=== PATIENT | female | born 1940 | race African-American/Black ===

== ENCOUNTER 2017-08-01 19:39 | Emergency (ER) | payer OTHER, MEDICAID ==
[~2017-08-01] VITALS: Ht 162.6 cm; Wt 68.0 kg
[2017-08-01 19:40] VITALS: BP 144/80
== END 2017-08-01 20:20 | disposition left against medical advice (07) ==
LOC: ER 19:39
DX: E11.649 Type 2 diabetes mellitus with hypoglycemia without coma (principal); Z53.21 Procedure and treatment not carried out due to patient leaving prior to being seen by health care provider

== ENCOUNTER 2021-02-27 19:55 | Emergency (ER) | payer OTHER, MEDICAID ==
[~2021-02-27] VITALS: Ht 157.5 cm; Wt 54.0 kg
[~2021-02-27 19:55] MED LIST: ATOR10TA69 PO; BROM3DRO; DICL100G31 TP; DIFL5DRO; DIXL5; METO25TA6 PO; MULT-1318 PO
[2021-02-27 23:07] VITALS: BP 131/70
== END 2021-02-27 23:19 ==
LOC: ER 19:55
DX: S00.81XA Abrasion of other part of head, initial encounter (principal); R51.9 Headache, unspecified; W01.0XXA Fall on same level from slipping, tripping and stumbling without subsequent striking against object, initial encounter; Y93.89 Activity, other specified; Y92.89 Other specified places as the place of occurrence of the external cause; Y99.8 Other external cause status
CPT/HCPCS: 99284

== ENCOUNTER 2022-06-14 08:26 | Inpatient (IN) | payer OTHER, MEDICAID ==
[~2022-06-14] VITALS: Ht 157.5 cm; Wt 50.1 kg
[2022-06-14 11:28] LABS: HEMATOCRIT. 37.4 % (36.0-48.0); HEMOGLOBIN. 12.4 g/dL (12.0-16.0); LYMPHOCYTES % 14.9 % (20.0-50.0); MEAN CORPUSCULAR VOLUME 81.4 fL (81.0-99.0); MEAN PLATELET VOLUME 7.2 fl (7.4-10.4); NEUTROPHILS % 76.1 % (40.0-76.0); PLATELET 358 x1000/uL (130-400); RED CELL DISTRIBUTION WIDTH 15.8 % (11.6-14.6)
[2022-06-14 11:36] LABS: CHLORIDE 101 mEq/L (98-107)
[2022-06-14] MEDS ORDERED: ONDANSETRON HCL 4MG/2ML INJ IV PRN (13:45)
[2022-06-14] MEDS ORDERED: DIPHENHYDRAMINE 50MG/ML VIAL IV PRN (13:45)
[2022-06-14] MEDS ORDERED: CLONIDINE 0.1MG TABLET PO PRN (13:45)
[2022-06-14] MEDS ORDERED: ACETAMINOPHEN 325MG TABLET PO PRN (13:45)
[2022-06-14] MEDS ORDERED: IPRATROPIUM/ALBUTEROL 0.5-3(2.5)MG/3ML NEB HHN PRN (13:45)
[2022-06-14] MEDS: DEXT 5%/0.9% NACL 1,000 ML IV SCH (13:53)
[2022-06-14] MEDS ORDERED: NALOXONE HCL 0.4MG/ML VIAL IV PRN (14:00)
[2022-06-14 16:40] VITALS: BP 158/73
[2022-06-14] MEDS ORDERED: DEXTROSE 50% WATER 50ML SYRINGE IV PRN (17:00)
[2022-06-14] MEDS: BLOOD SUGAR DIAGNOSTIC STRIP TEST SCH ×2 (17:49→21:06)
[2022-06-14] MEDS: INSULIN LISPRO 100 UNITS/ML SUBCUT SCH ×2 (18:07→21:28)
[2022-06-15 02:03] VITALS: BP 126/56
[2022-06-15] MEDS: DEXT 5%/0.9% NACL 1,000 ML IV SCH ×2 (05:44→23:46)
[2022-06-15] MEDS: BLOOD SUGAR DIAGNOSTIC STRIP TEST SCH ×4 (07:47→21:00)
[2022-06-15] MEDS: INSULIN LISPRO 100 UNITS/ML SUBCUT SCH ×4 (07:47→21:00)
[2022-06-15 08:00] VITALS: BP 125/72
[2022-06-15 08:27] LABS: BASOPHILS % 0.2 % (0.0-2.0); EOSINOPHILS % 0.1 % (0.0-5.0); HEMATOCRIT. 34.7 % (36.0-48.0); HEMOGLOBIN. 11.4 g/dL (12.0-16.0); LYMPHOCYTES % 21.5 % (20.0-50.0); MEAN CORPUSCULAR HEMOGLOBIN 26.8 pg (28.0-32.0); MEAN CORPUSCULAR VOLUME 81.5 fL (81.0-99.0); MEAN PLATELET VOLUME 7.8 fl (7.4-10.4); NEUTROPHILS % 66.2 % (40.0-76.0); PLATELET 316 x1000/uL (130-400); RED BLOOD CELL COUNT 4.26 mill/uL (4.2-5.4); RED CELL DISTRIBUTION WIDTH 15.5 % (11.6-14.6)
[2022-06-15 09:20] LABS: CHLORIDE 105 mEq/L (98-107)
[2022-06-15] MEDS: MORPHINE SULFATE 2 MG/ML CPJ (NOT FOR IM USE) IV PRN ×2 (11:20→20:25)
[2022-06-15 12:00] VITALS: BP 147/64
[2022-06-15 12:05] LABS: CREATINE KINASE 57 IU/L (26-192)
[2022-06-15 13:24] LABS: CLARITY URINE CLOUDY (CLEAR); COLOR URINE YELLOW (YELLOW); KETONES URINE TRACE (NEGATIVE); LEUKOCYTE ESTERASE URINE 2+ (NEGATIVE); NITRITE URINE NEGATIVE (NEGATIVE); OCCULT BLOOD URINE NEGATIVE (NEGATIVE); PROTEIN URINE 2+ (NEGATIVE); SPECIFIC GRAVITY URINE 1.019 (1.005-1.030); UROBILINOGEN URINE 0.2 E.U./dL (0.2-1.0)
[2022-06-15 20:00] VITALS: BP 136/70
[2022-06-16] VITALS (7 sets, daily range): BP systolic 103–147; BP diastolic 66–75
[2022-06-16] MEDS: BLOOD SUGAR DIAGNOSTIC STRIP TEST SCH ×4 (07:10→20:37)
[2022-06-16] MEDS: INSULIN LISPRO 100 UNITS/ML SUBCUT SCH ×4 (07:50→21:01)
[2022-06-16] MEDS: DEXT 5%/0.9% NACL 1,000 ML IV SCH (16:40)
[2022-06-16] MEDS: PANTOPRAZOLE SODIUM 40 MG/VIAL IV SCH (18:40)
[2022-06-17] VITALS: BP 125/61
[2022-06-17 00:45] LABS: BASOPHILS % 0.1 % (0.0-2.0); EOSINOPHILS % 0.9 % (0.0-5.0); HEMATOCRIT. 28.6 % (36.0-48.0); HEMOGLOBIN. 9.3 g/dL (12.0-16.0); LYMPHOCYTES % 32.3 % (20.0-50.0); MEAN CORPUSCULAR HEMOGLOBIN 26.9 pg (28.0-32.0); MEAN CORPUSCULAR VOLUME 82.6 fL (81.0-99.0); MEAN PLATELET VOLUME 7.6 fl (7.4-10.4); MONOCYTES % 10.8 % (2.0-8.0); NEUTROPHILS % 55.9 % (40.0-76.0); PLATELET 270 x1000/uL (130-400); RED BLOOD CELL COUNT 3.46 mill/uL (4.2-5.4); RED CELL DISTRIBUTION WIDTH 15.3 % (11.6-14.6)
[2022-06-17] MEDS: DEXT 5%/0.9% NACL 1,000 ML IV SCH (01:09)
[2022-06-17 04:00] VITALS: BP 117/80
[2022-06-17] MEDS: BLOOD SUGAR DIAGNOSTIC STRIP TEST SCH ×4 (06:43→21:28)
[2022-06-17 06:52] LABS: BASOPHILS % 0.1 % (0.0-2.0); HEMOGLOBIN. 8.7 g/dL (12.0-16.0); LYMPHOCYTES % 31.5 % (20.0-50.0); MEAN CORPUSCULAR VOLUME 83.7 fL (81.0-99.0); MEAN PLATELET VOLUME 7.8 fl (7.4-10.4); MONOCYTES % 10.8 % (2.0-8.0); NEUTROPHILS % 56.6 % (40.0-76.0); PLATELET 243 x1000/uL (130-400); RED BLOOD CELL COUNT 3.22 mill/uL (4.2-5.4); RED CELL DISTRIBUTION WIDTH 15.2 % (11.6-14.6)
[2022-06-17] MEDS: INSULIN LISPRO 100 UNITS/ML SUBCUT SCH ×4 (07:50→21:00)
[2022-06-17 08:00] VITALS: BP 118/86
[2022-06-17 08:23] LABS: PHOSPHORUS 1.8 mg/dL (2.5-4.9)
[2022-06-17] MEDS: PANTOPRAZOLE SODIUM 40 MG/VIAL IV SCH ×2 (08:56→21:00)
[2022-06-17] MEDS ORDERED: POTASSIUM PHOS,M-BASIC-D-BASIC 20 MMOL in DEXT 5% WATER 243.3333 ML IV NR (11:00)
[2022-06-17] MEDS: DEXTROSE 5% WATER 1,000 ML IV SCH ×2 (12:13→21:28)
[2022-06-17 16:00] VITALS: BP 144/68
[2022-06-17 18:53] LABS: FOLIC ACID (FOLATE) SERUM 8.5 ng/mL (>5.38)
[2022-06-17 20:00] VITALS: BP 128/66
[2022-06-18] VITALS (7 sets, daily range): BP systolic 133–153; BP diastolic 62–72
[2022-06-18 03:07] LABS: BASOPHILS % 0.5 % (0.0-2.0); EOSINOPHILS % 0.7 % (0.0-5.0); HEMATOCRIT. 28.3 % (36.0-48.0); HEMOGLOBIN. 9.3 g/dL (12.0-16.0); LYMPHOCYTES % 33.4 % (20.0-50.0); MEAN CORPUSCULAR HEMOGLOBIN 26.6 pg (28.0-32.0); MEAN CORPUSCULAR VOLUME 81.4 fL (81.0-99.0); MEAN PLATELET VOLUME 7.6 fl (7.4-10.4); MONOCYTES % 7.5 % (2.0-8.0); NEUTROPHILS % 57.9 % (40.0-76.0); PLATELET 246 x1000/uL (130-400); RED BLOOD CELL COUNT 3.48 mill/uL (4.2-5.4); RED CELL DISTRIBUTION WIDTH 14.9 % (11.6-14.6)
[2022-06-18 03:22] LABS: CHLORIDE 110 mEq/L (98-107)
[2022-06-18] MEDS: BLOOD SUGAR DIAGNOSTIC STRIP TEST SCH ×3 (06:00→16:40)
[2022-06-18] MEDS: INSULIN LISPRO 100 UNITS/ML SUBCUT SCH ×2 (06:55→11:44)
[2022-06-18] MEDS: PANTOPRAZOLE SODIUM 40 MG/VIAL IV SCH (08:59)
[2022-06-18] MEDS ORDERED: MAGNESIUM 2 G PREMIX 50 ML IV NR (10:00)
[2022-06-18] MEDS ORDERED: POTASSIUM PHOS,M-BASIC-D-BASIC 20 MMOL in DEXT 5% WATER 243.3333 ML IV NR (10:00)
[2022-06-18] MEDS ORDERED: SUCR1TAB30 MT (10:41)
[2022-06-18] MEDS ORDERED: PANT40TA51 MT (10:41)
== END 2022-06-18 18:05 | disposition home or self-care (01) | DRG 377 ==
LOC: ER 08:26 → 6EST 13:07 → EDBEDREQ 13:13 → EDBEDREQTM 13:13 → ENRESERV 15:46 → 7EST 06-18 01:42
PROVIDERS: ADMIT Internal Medicine; ATTEND Internal Medicine
PROC: 0DP0XUZ Removal of Feeding Device from Upper Intestinal Tract, External Approach (ICD-10-PCS; principal; 2022-06-14)
DX: K92.2 Gastrointestinal hemorrhage, unspecified (principal); U07.1 COVID-19; E87.3 Alkalosis; N17.9 Acute kidney failure, unspecified; K56.50 Intestinal adhesions [bands], unspecified as to partial versus complete obstruction; E11.22 Type 2 diabetes mellitus with diabetic chronic kidney disease; G30.9 Alzheimer's disease, unspecified; N18.9 Chronic kidney disease, unspecified; F02.80 Dementia in other diseases classified elsewhere, unspecified severity, without behavioral disturbance, psychotic disturbance, mood disturbance, and anxiety; I12.9 Hypertensive chronic kidney disease with stage 1 through stage 4 chronic kidney disease, or unspecified chronic kidney disease; D64.9 Anemia, unspecified; Z79.899 Other long term (current) drug therapy
CPT/HCPCS: 36415; 71045; 74018; 74176; 80048; 80053; 81003; 82550; 82607; 82728; 82746; 82962; 83036; 83540; 83550; 83735; 84100; 85025; 85044; 87077; 87186; 87426; 93970; 97162; 99285; C9113; J1815; J2270; J2405; J3475; J3490; J7060; J7070; A4315